=== PATIENT | male | born 1965 | race Caucasian/White ===

== ENCOUNTER 2020-09-25 14:09 | Emergency (ER) | payer OTHER, SELFPAY ==
--- NOTE | 2020-09-25 14:12 | ED.DENTAL ---
HPI - Dental/Oral General Chief complaint: Dental/Oral Stated complaint: tooth inf Time Seen by Provider: 09/25/20 14:12 Source: patient and RN notes reviewed History of Present Illness HPI Narrative: Patient is a 55-year-old male who presents the urgent care with complaints of left upper dental pain. Patient states that it started approximately 2 or 3 days ago and now he does have that bad taste in his mouth. Denies of any fever, chills, nausea, vomiting. Patient states that the cold fluids do bother the area. States that he has been taking Aleve without much improvement. Patient states he does have an appointment at the dental clinic on the and is afraid that if he does not get the infection taking care of they will cancel his appointment . No other acute complaints. No acute distress noted. Patient aware of the plan of care. Some parts of this dictation were generated by voice recognition software and may contain typographical and/or grammatical inaccuracies. Related Data Home Medications Medication Instructions Recorded Confirmed gabapentin 100 mg PO BID 09/25/20 09/25/20 metformin 500 mg PO BID 09/25/20 09/25/20 Allergies Allergy/AdvReac Type Severity Reaction Status Date / Time No Known Allergies Allergy Verified 09/25/20 14:28 Review of Systems Review of Systems: Narrative: CONSTITUTIONAL: Denies fever, chills, or sweats. EYES: Denies visual changes, redness, or discharge. ENT: Denies rhinorrhea, congestion, sore throat, or otalgia. Reports of left upper dental pain CARDIOVASCULAR: Denies chest pain, palpitations, or edema. RESPIRATORY: Denies cough or dyspnea. GASTROINTESTINAL: Denies abdominal pain, nausea, vomiting, or diarrhea. GENITOURINARY: Denies dysuria or hematuria. SKIN: Denies rash or itching. MUSCULOSKELETAL: Denies back pain, joint pain, or myalgia. NEUROLOGIC: Denies headache, numbness, or weakness. All other systems reviewed are negative, except as documented in HPI. PMFSH Comments At the time of my signature, I reviewed and agree with the nursing past medical, surgical, social, and family history. There is no relevant family history pertinent to the patient complaint. Exam Narrative: Exam Narrative: GENERAL: This is a well-nourished, well-developed patient, in no apparent distress. HEAD: normocephalic, atraumatic. EYES: PERRL. Sclera clear/white. Vision is grossly intact. EARS: External ears normal NOSE: External nose normal with no obvious nasal discharge, nares without redness, no rhinorrhea. THROAT: Mucous membranes moist, posterior pharynx clear. MOUTH: Mild erythema and edema noted to the outer aspect of the gingiva to the left upper quadrant; multiple large fillings noted to premolar/molars of the left upper quadrant NECK: Neck supple CARDIOVASCULAR: Regular rate and rhythm without murmurs, gallops, or rubs. RESPIRATORY: Clear to auscultation. Breath sounds equal bilaterally. No wheezes, rales, or rhonchi. SKIN: warm, intact with no suspicious lesions or rash, good texture and turgor. NEURO: awake, alert, and oriented to person, place and time. There were no obvious focal neurologic abnormalities. EXTREMITIES: No clubbing, cyanosis, or edema. Course Vital Signs Vital signs: Vital Signs Temperature 98 F 09/25/20 14:20 Pulse Rate 75 09/25/20 14:20 Respiratory Rate 16 09/25/20 14:20 Blood Pressure 139/91 H 09/25/20 14:20 Pulse Oximetry 99 09/25/20 14:20 Temperature 98 F 09/25/20 14:20 Pulse Rate 75 09/25/20 14:20 Respiratory Rate 16 09/25/20 14:20 Blood Pressure 139/91 H 09/25/20 14:20 Pulse Oximetry 99 09/25/20 14:20 Reviewed-patient is informed that they may have pre-hypertension or hypertension based on a blood pressure reading in the department. I recommend the patient call the primary care provider listed on their discharge instructions or a physician of their choice this week to arrange follow-up for further evaluation of possible pre
[2020-09-25 14:20] VITALS: BP 139/91; PULSE 75; RESP 16; TEMP 36.6; O2SAT 99
== END 2020-09-25 14:40 | disposition home or self-care (01) ==
PROVIDERS: Emergency Provider Nurse Practitioner Family; PCP Internal Medicine Geriatric Medicine
DX: K04.7 Periapical abscess without sinus (principal); E11.9 Type 2 diabetes mellitus without complications; I25.2 Old myocardial infarction; Z95.5 Presence of coronary angioplasty implant and graft; G62.9 Polyneuropathy, unspecified
CPT/HCPCS: 99213; G0463